=== PATIENT | male | born 1950 | race Caucasian/White ===

== ENCOUNTER 2022-02-05 14:25 | Oncology outpatient (recurring) (ONCR) | payer OTHER, SELFPAY ==
[2022-02-05 15:59] LABS: Basophils # 0.1 10^3/uL (0.0-0.1); Basophils % 0.8 %; Eosinophils # 0.3 10^3/uL (0.0-0.8); Eosinophils % 3.1 %; Hematocrit 44.6 % (42.0-52.0); Hemoglobin 14.4 g/dL (11.7-16.6); Lymphocytes # 2.7 10^3/uL (0.8-4.8); Lymphocytes % 31.6 %; Mean Corpuscular HGB Conc 32.3 g/dL (30.0-36.0); Mean Corpuscular Hemoglobin 27.2 pg (28.0-34.0); Mean Corpuscular Volume 84.2 fl (80-94); Mean Platelet Volume 10.6 fL (7.4-10.4); Monocytes # 0.7 10^3/uL (0.2-0.9); Monocytes % 8.4 %; Neutrophils # 4.71 10^3/uL (1.8-7.7); Neutrophils % 55.9 %; Nucleated Red Blood Cells % 0 %; Platelet Count 225 10^3/cmm (130-400); Red Cell Distribution Width 13.8 % (12.1-15.1); White Blood Count 8.4 10^3/uL (4.0-10.0)
[2022-02-05 16:03] LABS: Erythrocyte Sedimentation Rate 34 mm/hr (0-10)
[2022-02-05 16:11] LABS: LAB Peripheral Smear Sent for Review
[2022-02-05 16:34] LABS: Alanine Aminotransferase 7 U/L (0-41); Albumin Level 3.3 g/dL (3.5-5.2); Alkaline Phosphatase 148 U/L (40-130); Anion Gap 13.7 (5-19); Aspartate Amino Transferase 10 U/L (0-40); Blood Urea Nitrogen 9 mg/dL (8-23); C Reactive Protein 18.7 mg/L (0.0-4.9); Calcium 9.5 mg/dL (8.5-10.5); Carbon Dioxide 25 mmol/L (22-29); Chloride 104 mmol/L (98-107); Globulin 3.6 g/dL (1.3-4.6); Glucose 110 mg/dL (65-115); Lactate Dehydrogenase 134 U/L (135-225); Osmolality Calculated 287 mOsm/kg (285-295); Potassium 3.7 mmol/L (3.5-5.1); Sodium 139 mmol/L (136-145); Thyroid Stimulating Hormone 0.01 uIU/mL (0.27-4.20); Total Bilirubin 0.6 mg/dL (0.15-1.2); Total Protein 6.9 g/dL (6.6-8.7)
== END 2022-03-03 23:59 | disposition home or self-care (01) ==
PROVIDERS: Visit Provider Internal Medicine Medical Oncology
DX: D72.829 Elevated white blood cell count, unspecified (principal); R63.4 Abnormal weight loss
CPT/HCPCS: 80053; 83615; 84443; 85025; 85651; 86140

== ENCOUNTER 2022-03-04 09:19 | Outpatient (CLI) | payer OTHER, SELFPAY ==
--- NOTE | 2022-03-04 10:00 | NM_ITS ---
WS: [id number] NUCLEAR MEDICINE HIDA SCAN WITH GALLBLADDER EJECTION FRACTION HISTORY: Abdominal pain, vomiting, and weight loss COMPARISON: CT 01/03/2022 and prior ultrasound 01/01/2022 TECHNIQUE: The patient was intravenously injected with 7.6 mCi of TC99m Mebrofenin. Immediate imaging over the right upper quadrant was followed by 5 minute image and additional images for a total of 60 minutes. Normal uptake of radiotracer throughout the liver. Activity identified in the gallbladder at 30 minutes and well distended by 60 minutes. Activity in the proximal small bowel was seen by 30 minutes. Limited washout of the radiotracer from the liver by 60 minutes. The patient then drank 8 ounces of Ensure Plus. Ejection fraction at 60 minutes was 100%. Normal GB e jection fraction is 35-75%. Post fatty meal symptoms: None. NM/NM hepatobiliary w phar* [id number] IMPRESSION: 1. Normal HIDA scan. 2. Normal gallbladder ejection fraction. 3. Delayed excretion from the liver. There is still activity in the liver at 6 0 minutes. Correlate for hepatitis/acute hepatocellular disease.
== END 2022-03-04 09:20 | disposition home or self-care (01) ==
PROVIDERS: PCP Nurse Practitioner Family; Visit Provider Internal Medicine Medical Oncology
DX: R10.9 Unspecified abdominal pain (principal); R63.4 Abnormal weight loss; R11.10 Vomiting, unspecified
CPT/HCPCS: 78227; A9537

== ENCOUNTER 2022-03-06 08:29 | Oncology outpatient (recurring) (ONCR) | payer OTHER, SELFPAY ==
[2022-03-06 09:28] LABS: Basophils # 0.1 10^3/uL (0.0-0.1); Basophils % 0.7 %; Eosinophils # 0.4 10^3/uL (0.0-0.8); Eosinophils % 4.7 %; Hematocrit 44.9 % (42.0-52.0); Lymphocytes # 2.7 10^3/uL (0.8-4.8); Lymphocytes % 29.8 %; Mean Corpuscular HGB Conc 31.2 g/dL (30.0-36.0); Mean Corpuscular Hemoglobin 26.6 pg (28.0-34.0); Mean Corpuscular Volume 85.4 fl (80-94); Mean Platelet Volume 11.1 fL (7.4-10.4); Monocytes # 0.8 10^3/uL (0.2-0.9); Monocytes % 8.8 %; Neutrophils % 55.7 %; Nucleated Red Blood Cells % 0 %; Platelet Count 232 10^3/cmm (130-400); Red Blood Count 5.26 10^6/uL (4.1-5.3); Red Cell Distribution Width 14.1 % (12.1-15.1)
[2022-03-06 09:40] LABS: Erythrocyte Sedimentation Rate 23 mm/hr (0-10)
[2022-03-06 09:46] LABS: Alanine Aminotransferase 9 U/L (0-41); Albumin Level 3.5 g/dL (3.5-5.2); Alkaline Phosphatase 136 U/L (40-130); Anion Gap 11.7 (5-19); Aspartate Amino Transferase 13 U/L (0-40); Blood Urea Nitrogen 11 mg/dL (8-23); Calcium 9.9 mg/dL (8.5-10.5); Carbon Dioxide 28 mmol/L (22-29); Chloride 104 mmol/L (98-107); Globulin 3.5 g/dL (1.3-4.6); Glucose 114 mg/dL (65-115); LAB Peripheral Smear Sent for Review; Lactate Dehydrogenase 129 U/L (135-225); Osmolality Calculated 290 mOsm/kg (285-295); Potassium 3.7 mmol/L (3.5-5.1); Sodium 140 mmol/L (136-145); Total Bilirubin 0.6 mg/dL (0.15-1.2)
[2022-03-06 14:53] LABS: Free T4 Free Thyroxine 4.27 ng/dL (0.82-1.77); T3 Free 9.5 PG/ML (2.0-4.4); Thyroid Stimulating Hormone 0.01 uIU/mL (0.27-4.20)
== END 2022-04-02 23:59 | disposition home or self-care (01) ==
PROVIDERS: PCP Nurse Practitioner Family; Visit Provider Internal Medicine Medical Oncology
DX: D72.829 Elevated white blood cell count, unspecified (principal); E05.90 Thyrotoxicosis, unspecified without thyrotoxic crisis or storm
CPT/HCPCS: 36415; 80053; 83615; 84439; 84443; 84481; 85025; 85651; 86140

== ENCOUNTER 2022-04-09 07:13 | Day surgery (SDC) | payer OTHER, SELFPAY ==
[2022-04-07 09:44] VITALS: BMI 18.4
[2022-04-09 07:26] VITALS: BP 146/80; PULSE 80; RESP 18; TEMP 36.2; O2SAT 98
[2022-04-09] MEDS: sodium chloride 0.9% 1,000 ML 30 ML IV (07:35)
--- NOTE | 2022-04-09 07:46 | ANES.PREANE2 ---
Pre-Anesthetic Assessment Height/Weight: Height 1.7 m Weight 53.524 kg Temp Pulse Resp BP Pulse Ox O2 Del Method 97.2 F L 80 18 146/80 98 04/09/22 07:26 04/09/22 07:26 04/09/22 07:26 04/09/22 07:26 04/09/22 07:26 04/09/22 07:26 Preop Diagnosis: History of colitis Operation Date: 04/09/22 08:30 Proposed Procedures p Colonoscopy 29532,R93.89(Not Applicable) - Messi Mendez MD Familial anesthetic complications: none Was Beta Ez taken within 24 hours: N/A Was Clonidine taken within 24 hours: N/A Last intake: Intake Last Liquid Date 04/08/22 Last Liquid Time 22:00 Last Solid Date 04/07/22 Last Solid Time 18:00 Social Tobacco and No alcohol Exam alert, oriented x 3 and regular rate & rhythm Airway Submandibular: within normal limits Cervical ROM: within normal limits Mallampati: Class I Dentition: false Pulmonary Chronic Obstructive Pulmonary Disease CV/HEM Peripheral Vascular Disease (AAA) Anesthetic Plan ASA status: 3 Anesthesia: MAC Medications/Allergies Home Medications Medication Instructions Recorded Confirmed Last Taken Type No Known Home Medications 04/08/22 04/09/22 Unknown History Allergies Allergy/AdvReac Type Severity Reaction Status Date / Time No Known Allergies Allergy Verified 04/09/22 07:25 Current Medications Generic Name Dose Route Start Last Admin Trade Name Freq PRN Reason Stop Dose Admin Sodium Chloride 1,000 mls @ 30 mls/hr 04/09/22 07:30 04/09/22 07:35 Sodium Chloride 0.9% IV 30 mls/hr .Q24H KENDAL Administration PFSH Anesthesia Medical History (Updated 04/03/22 @ 11:19 by Kayden Hopkins MD) Aneurysm of 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 Sister CAD (coronary artery disease) Lung disease lung cancer Other Cancer Denies family history of Diabetes Clotting disorder Chronic kidney disease (CKD) Social History Smoking and tobacco status: current every day smoker cigarettes Packs smoked per day: 1 Years cigarettes smoked: 60 Alcohol intake: current Alcohol intake frequency: few times a month Lives independently: Yes Household members: family Housing: House Marital status: Number of children: 3 Pets and animals: Yes Pets & animals: dog(s) Data Anesthesia Cardiac Studies: No Data to Display
--- NOTE | 2022-04-09 07:56 | W.PM.OPSFHP ---
Same Day Surgery H&P Indication for Procedure/HPI DATE OF PROCEDURE: April 09, 2022 CHIEF COMPLAINT/INDICATIONFOR SURGICAL PROCEDURE: I am here for colonoscopy PREOP DIAGNOSIS: History of colitis PLANNED PROCEDURE: Operation Date: 04/09/22 08:30 Proposed Procedures p Colonoscopy 10183,R93.89(Not Applicable) - Messi Mendez MD 01/16/2022 This is a pleasant 74 years old gentleman referred to my practice with history of nausea vomiting and right-sided abdominal pain associated with nonbloody diarrhea.? On 01/09/2022 patient had an ultrasound at outside facility that was found to have gallbladder stones and CT of the abdomen pelvis was done later on that did show colitis of the right side of the colon recommending to follow-up with a colonoscopy as the patient never had a colonoscopy before. Currently the patient denies any symptoms and he comes today escorted by his .? Unfortunately I do not have any images available for review as the discs are not available in our system. Because of the recent episode of colitis will hold on the colonoscopy for 6 to 8 weeks after the last episode to minimize the potential risk of colon perforation. 04/09/2022 Patient comes today for diagnostic colonoscopy. Patient undergone a HIDA scan per Dr. Villa and did show 1.? Normal HIDA scan. 2.? Normal gallbladder ejection fraction. 3.? Delayed excretion from the liver. There is still activity in the liver at 60 minutes. Correlate for hepatitis/acute hepatocellular disease. ? Patient reports his right side does not hurt anymore. ROS All systems have been reviewed negative except as for the above or per problem list. Medications/Allergies* Home Medications Medication Instructions Recorded Confirmed Type No Known Home Medications 04/08/22 04/09/22 History Allergies/Adverse Reactions Allergy/AdvReac Type Severity Reaction Status Date / Time No Known Allergies Allergy Verified 04/09/22 07:57 Current Medications: Generic Name Dose Route Start Last Admin Trade Name Freq PRN Reason Stop Dose Admin Sodium Chloride 1,000 mls @ 30 mls/hr 04/09/22 07:30 04/09/22 07:35 Sodium Chloride 0.9% IV 30 mls/hr .Q24H KENDAL Administration Pertinent History/Comorbid Conditions* Medical History (Updated 04/03/22 @ 11:19 by Kayden Hopkins MD) Aneurysm of 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 Family History (Updated 01/16/22 @ 14:05 by Claudia Hernandez) CAD (coronary artery disease) Brother Father Sister Lung disease Sister lung cancer Cancer Denies family history of Diabetes Clotting disorder Chronic kidney disease (CKD) Social History Smoking and tobacco status: current every day smoker cigarettes Packs smoked per day: 1 Years cigarettes smoked: 60 Alcohol intake: current Alcohol intake frequency: few times a month Lives independently: Yes Household members: family Housing: House Marital status: Number of children: 3 Pets and animals: Yes Pets & animals: dog(s) Pertinent Exam Findings alert, oriented x 3, regular rate & rhythm and procedure specific exam findings (Abdominal exam nontender nondistended soft) Recommendations Surgery/Procedure today (Colonoscopy with possible biopsy) Coding Level of Care Code Acute 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
--- NOTE | 2022-04-09 08:58 | PC.NURSE ---
Pt has bilateral bottom irritation, but no open skin
[2022-04-09 09:15] VITALS: BP 147/72; PULSE 70; RESP 16; TEMP 36.2; O2SAT 100
[2022-04-09 09:31] VITALS: BP 157/91; PULSE 71; RESP 18; O2SAT 99
--- NOTE | 2022-04-09 11:59 | ANE.PACU2 ---
Inpatient post-anesthesia follow up: Airway intact: Yes Vital signs: Temperature 97.1 F Pulse Rate 71 Respiratory Rate 18 Blood Pressure 157/91 Pulse Oximetry 99 Oxygen Delivery Me thod Room Air Oxygen Flow Rate 3.5 Fraction of Inspir ed Oxygen Hydration adequate: Yes Nausea and vomiting: No Pain level: 1 Mental status: Baseline
== END 2022-04-09 09:50 | disposition home or self-care (01) ==
PROVIDERS: PCP Nurse Practitioner Family; Visit Provider Surgery
PROC: 0DJD8ZZ Inspection of Lower Intestinal Tract, Via Natural or Artificial Opening Endoscopic (ICD-10-PCS; CPT 45378; principal; 2022-04-09 08:30)
DX: R93.89 Abnormal findings on diagnostic imaging of other specified body structures (principal); J44.9 Chronic obstructive pulmonary disease, unspecified; F17.210 Nicotine dependence, cigarettes, uncomplicated
CPT/HCPCS: 36415; 45380; 82274; 83516; 83630; 86376; 86800; 87493; 87506; 88305; J2704; J7030

== ENCOUNTER 2022-04-11 15:27 | Outpatient (CLI) | payer OTHER, SELFPAY ==
--- NOTE | 2022-04-11 15:30 | CT_ITS ---
WS: [id number] EXAMINATION: CT angio abdomen pelvis [id number] REASON FOR EXAM: AAA COMPARISON: 01/03/2022 TECHNIQUE: Coronal and sagittal 2-D and MIP reformations. IV CONTRAST ADMINISTERED: Omnipaque 350 95 ml TOTAL EXAM DLP: 702.[address] scans at [facility] use at least one of these dose optimization techniques: automated e xposure control; mA and/or kV adjustment per patient size (includes targeted exams where dose is matc hed to clinical indication); or iterative reconstruction. FINDINGS: Emphysematous changes are present in the lung bases. The liver is normal in size without focal abnormality. The gallbladder is unremarkable without calculi. There are diffuse pancreatic calcifications consistent with chronic pancreatitis no ductal dilatation . The spleen and adrenals are unremarkable. The kidneys demonstrate bilateral renal scarring and small renal cysts with calcification in the uppe r pole the left kidney likely vascular. No hydronephrosis. No bowel dilatation noted. Mild diverticulosis present in the sigmoid colon. Urinary bladder unremarkable. Prostate gland enlargement with calcification. No ascites Vascular: 80-90% stenoses in the proximal celiac and superior mesenteric arteries with poststenotic d ilatation. There are 2 right renal arteries each with a 70-80% stenosis proximally. Normal patency of the left renal artery is noted. There is aortic and iliac atherosclerotic calcification with infrare nal aortic dissection and/or fusiform dilatation up to 33 mm with prominent circumferential mural thr ombus. And moderate bilateral common iliac artery stenosis. The right external iliac artery is comple tely occluded with reconstitution occurring at the level of the common femoral artery by enlarged cir cumflex iliac and right epigastric arterial collaterals. 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 Reconstitution is demonstrated throu gh hypertrophic enlargement of the right epigastric artery and circumflex iliac branches at the level of the right common femoral artery. Prostate enlargement as before
[2022-04-11] MEDS: iohexol 350 mg/mL 500 mL Btl (per mL) IV (15:40)
--- NOTE | 2022-04-11 16:30 | CT_ITS ---
WS: [id number] LDCT LUNG CANCER SCREENING HISTORY: SMOKING addiction TECHNIQUE: Axial imaging performed from the apices to 1 cm below the costophrenic angles. Coronal and sagittal reformats are submitted with axial MIP series. All CT scans at [facility] use at least one of these dose optimization techniques: automated exposure control; mA and/or kV adjustment per patient size (includes targeted exams where dose is matched to clinical indication); or iterativ e reconstruction. DLP: 81.01 mGy.cm DIvol: Mean CTDIvol: 1.60 (mGy) COMPARISON: None available. Diagnostic quality: Satisfactory Lung Nodules: Lungs are hyperexpanded. There are several very small nodules scattered throughout the lungs. These are predominantly within the upper lung andujar and slightly irregular. These are probabl y all postinflammatory with the largest measuring 5 mm LEFT upper lobe. Lungs: Chronic centrilobular emphysema. Small thin wall cyst versus bronchiectasis at the lung bases. Heart: Normal size heart. No pericardial effusion. Other findings: RIGHT thyroid nodule 2.7 x 2.1 cm. Thyroid is enlarged and extends substernal and nod ular. Anterior mediastinal mildly hyperdense nodule measures 13 mm. There is additional numerous medi astinal and hilar lymph nodes which are slightly enlarged indeterminate measuring up to 14 mm. Mild p ulmonary enlargement. Atherosclerosis aorta. Moderate thoracic spondylosis. CT/CT lung screening [id number] IMPRESSION: LUNG-RADS: 3S-Probably Benign with Significant Findings FOLLOW UP: 6 Month LDCT OTHER FINDINGS (S MODIFIER): Mediastinal and hilar enlarged lymph nodes. Indete rminate. Chest CT with IV contrast recommended to further evaluate the distribu tion and size of these mediastinal and hilar lymph nodes. The anterior mediasti nal mass may be related to a thymic mass. Multinodular enlarged goiter. RIGHT t hyroid nodule. Consider further evaluation by ultrasound.
== END 2022-04-11 15:28 | disposition home or self-care (01) ==
PROVIDERS: PCP Nurse Practitioner Family; Visit Provider Thoracic Surgery (Cardiothoracic Vascular Surgery)
DX: Z12.2 Encounter for screening for malignant neoplasm of respiratory organs (principal); K55.1 Chronic vascular disorders of intestine
CPT/HCPCS: 71271; 74174; Q9967